=== PATIENT | female | born 1995 | race African-American/Black ===

== ENCOUNTER → 2020-04-19 | Outpatient (CLI) | payer BC, OTHER | LOC: ULTRA 10:21 | PROVIDERS: ATTEND Family Medicine | DX: E04.1 Nontoxic single thyroid nodule (principal); E03.9 Hypothyroidism, unspecified; E04.9 Nontoxic goiter, unspecified; N83.201 Unspecified ovarian cyst, right side ==

== ENCOUNTER → 2020-04-24 | Outpatient (CLI) | payer BC, OTHER ==
--- NOTE | 2020-04-25 15:08 | PATH ---
[facility] [address] [place] [address] PATHOLOGY RPT PROCEDURE Name: LOGAN OLIVA Room #: REG YOLANDA Godinez.#: [id number] Admission: 04/24/20 Date of : 89 Discharge: Report #: [id number] Path Case #: [id number] Note [facility] Accession Number: [id number] TESTS RESULT FLAG UNITS REF RANGE LAB Clinician Provided Cytology Information No. of containers..01 Other (Miscellaneous) Source: RIGHT THRYOID NODULE DIAGNOSIS: RIGHT THRYOID NODULE, FINE NEEDLE ASPIRATION NEGATIVE FOR MALIGNANT EPITHELIAL CELLS. BETHESDA CATEGORY II. SPECIMEN CONSISTS OF ABUNDANT FOLLICULAR CELLS WITH PREDOMINANTLY A MACROFOLLICULAR ARCHITECTURE, FEW HURTHLE CELLS RARE HEMOSIDERIN-LADEN MACROPHAGES, SCANT COLLOID AND BLOOD. THE PATTERN MAY BE COMPATIBLE WITH ADENOMATOID NODULE. COLLOID IS PRESENT. THIS INTERPRETATION INCLUDES EVALUATION OF A CELL BLOCK. NEGATIVE FOR NUCLEAR FEATURES OF PAPILLARY THYROID CARCINOMA. Comment: The differential diagnosis includes an adenomatoid nodule or a mixed follicular adenoma with a few Hurthle cells. 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 Pathologist ICD10: 02 E04.1 Signed out by: Rhys Ford MD, Pathologist NPI- [id number] Performed by: 01 Kasia Luque, New Media Strategist (ASCP) Gross description: 01 20ML, RED, 2FX 2AD /LCS 04/24/2020 1306 Local FLAG LEGEND: L-Low Normal,H-High Normal,LL-Alert Low,HH-Alert High <-Panic Low,>-Panic High,A-Abnormal,AA-Critical Abnormal Performed at: 01 [facility] [address] [place] [address] [address] [place] [address] Nando Downing MD, [address] [facility] [address] [address] Nusrat Ford MD, Specimen Comment: A courtesy copy of this report has been sent to [phone] [address] PATHOLOGY RPT PROCEDURE Name: HAZELPORTIASD Room #: DONNA YOLANDA Whitlock#: [id number] Admission: 04/24/20 Date of : 89 Discharge: Report #: [id number] Path Case #: [id number] Specimen Comment: Report sent to Performed at: [address], [place], [place] [id number] MD Nando Downing MD Phone: [phone]
== END | disposition home or self-care (01) ==
LOC: ULTRA 08:27
PROVIDERS: ATTEND Family Medicine
DX: E04.1 Nontoxic single thyroid nodule (principal)